=== PATIENT | male | born 1950 | race Caucasian/White ===

== ENCOUNTER 2019-08-17 08:00 | Day surgery (SDC) | payer MEDICARE, BC ==
[2019-08-15 15:08] VITALS: BMI 27.4
[~2019-08-17 08:00] MED LIST: LACTATED RINGERS 1,000 ML IV SCH; LIDOCAINE 1% 20 ML VIAL (10MG/ML) FOR IV START INTRADERMA PRN
[2019-08-17 08:35] VITALS: RESP 16; TEMP 98.1
[2019-08-17] MEDS ORDERED: PROPOFOL 10 MG/ML 20 ML VIAL IV ONE (09:10)
--- NOTE | 2019-08-17 09:28 | P.PCN ---
Date of Procedure: 08/17/19 Procedure(s) Performed: BRIEF HISTORY: Patient is a 68-year-old pleasant 8 male, scheduled for an elective colonoscopy as a part of screening for colorectal neoplasia. Last colonoscopy was 10 years ago. PROCEDURE PERFORMED: Colonoscopy. PREOPERATIVE DIAGNOSIS: Screening for colon cancer. IV sedation per Anesthesia. PROCEDURE: After informed consent was obtained, the patient, was brought into the endoscopy unit. IV sedation was administered by Anesthesia under continuous monitoring. Digital rectal examination was normal. Initially the Olympus CF-160 flexible video colonoscope was then inserted in the rectum, gradually advanced into the cecum without any difficulty. Careful examination was performed as the scope was gradually being withdrawn. Ileocecal valve and the appendiceal orifice were visualized and appeared normal. Prep was excellent. Mucosa of the cecum, ascending colon, transverse colon, descending colon, sigmoid colon, and rectum appeared normal. Scattered sigmoid diverticulosis seen. Retroflexion was performed in the rectum and no lesions were seen. The patient tolerated the procedure well. IMPRESSION: Normal-appearing colon from rectum to cecum with no evidence of colorectal neoplasia. Scattered sigmoidal diverticulosis. RECOMMENDATIONS: Findings of this examination were discussed with the patient as well as his family. He was advised to have a repeat screening colonoscopy in 10 years.
[2019-08-17 10:06] VITALS: BP 127/75; PULSE 69
== END 2019-08-17 10:17 | disposition home or self-care (01) ==
LOC: ORWHC2ENDO 08:00
PROVIDERS: ATTEND Internal Medicine Gastroenterology
DX: Z12.11 Encounter for screening for malignant neoplasm of colon (principal); K57.30 Diverticulosis of large intestine without perforation or abscess without bleeding; E78.5 Hyperlipidemia, unspecified; N40.0 Benign prostatic hyperplasia without lower urinary tract symptoms; Z79.899 Other long term (current) drug therapy; Z96.651 Presence of right artificial knee joint
CPT/HCPCS: J2704; G0121

== ENCOUNTER → 2021-08-19 | Outpatient (CLI) | payer MEDICARE, BC ==
--- NOTE | 2021-08-19 12:45 | P.STRESS ---
- Stress Test Note Stress Test Results/Findings: Exam Performed: stress echo exercise Exam Date: 08/19/21 Reason for Exam: chest pain Height: 5 ft 5 in Weight: 170 kg Protocol: Aaron Stage: III Duration of Exercise: 8:01 Resting Heart Rate: 79 Resting Blood Pressure: 148/84 Maximum Achieved Heart Rate: 140 Maximum Achieved Blood Pressure: 186/66 85% PMHR: 126 100% PMHR: 148 METS: 9.7 Technologist Comment: Stress Test Results/Findings: Patient underwent exercise stress echo with a Aaron protocol treadmill stress test. Patient exercised into Stage 3 for a total of 8 minutes and 1 second reaching a total of 9.7 METS. Patient's maximum heart rate was 140 which represented 95 % age-predicted maximum heart rate. There was no chest pain noted with exercise. Stress EKG portion: At baseline patient's EKG showed normal sinus rhythm, normal axis, no significant ST or T-wave abnormalities. At peak exercise, EKG showed nonspecific 0.[address] depressions in the inferior and lateral leads which is nondiagnostic, occasional PVC. Stress echo portion: 2-D echocardiogram was performed in the parasternal long, personal short, apical 2 and apical four-chamber views at rest, peak exercise and in recovery. At baseline, echocardiogram showed left ventricular ejection fraction 55% without wall motion abnormalities. With peak exercise, echocardiogram shows improvement in left ventricular ejection fraction, increase contractility, decrease in left ventricular dimension without wall motion abnormalities consistent with a normal response to exercise. Conclusions: 1. Nondiagnostic and nonspecific EKG response with 0.[address] depressions in the inferior and lateral leads. 2. Normal echo response to exercise without evidence of inducible ischemia. 2. Fair exercise capacity.
== END | disposition home or self-care (01) ==
LOC: RADNMMAIN 09:35
PROVIDERS: ATTEND Internal Medicine
DX: R07.9 Chest pain, unspecified (principal)
CPT/HCPCS: 93351

== ENCOUNTER → 2024-03-29 | Outpatient (CLI) | payer MEDICARE ==
[2024-03-29 16:01] VITALS: BP 162/84; PULSE 64; RESP 16; TEMP 97.9
--- NOTE | 2024-03-29 17:07 | P.SLEEP ---
History of Present Illness H&P Date: 03/29/24 This is a 73-year-old male patient who is coming in for increased fatigue and sleepiness. The patient has been evaluated for sleep apnea in the past and this evaluation was done more than 20 years ago. At that time, he was given a CPAP machine and used the machine briefly and he was unable to tolerate any endocrine with treatment. As such, over the past 20 years, the patient has not been utilizing any form of treatment. He is currently retired. 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 He is snores quite soft and no loud snoring according to the . Nevertheless, he has been noted to slow down his breathing and at times quit breathing in the middle of the night as reported by the when he wakes up with a choking and gas. No grinding of the teeth. No sleepwalking. No sleep talking. No symptoms of nocturia. The patient goes to bed around 10 PM, wakes up 6 AM in the morning. He takes a nap which last for approximately an hour at around 2:30 PM. He can easily fall asleep and he has no problems with sleep initiation. During the day, he feels fatigued and according to the he seems to be more tired. He sleeps on his stomach. The nose breather. No recent weight gain. No excessive utilization of alcohol or caffeinated beverages. No history of any motor vehicle accidents because of feeling drowsy or sleepy. Comorbidities are hyperlipidemia and BPH. No history of any cardiovascular disease. No atrial fibrillation. No frandy estion heart failure. No history of any stroke. Review of Systems Constitutional: Reports daytime sleepiness, Reports fatigue Eyes: denies as per HPI, denies blurred vision, denies bulging eye, denies decreased vision, denies diplopia, denies discharge, denies dry eye, denies irritation, denies itching, denies pain, denies photophobia, denies loss of peripheral vision, denies loss of vision, denies tunnel vision/blind spots Ears: deny: decreased hearing, ear discharge, earache, tinnitus Ears, nose, mouth and throat: Reports as per HPI Breasts: absent: as per HPI, gynecomastia Cardiovascular: Reports as per HPI Respiratory: Reports as per HPI, Reports sleep apnea Gastrointestinal: Reports as per HPI Genitourinary: Reports as per HPI Musculoskeletal: Reports as per HPI Musculoskeletal: absent: ankle pain, ankle stiffness, ankle swelling, as per HPI, elbow pain, elbow stiffness, elbow swelling, foot pain, foot stiffness, foot swelling, hand pain, hand stiffness, hand swelling, hip pain, hip stiffness, hip swelling, knee pain, knee stiffness, knee swelling, shoulder pain, shoulder stiffness, shoulder swelling, wrist pain, wrist stiffness, wrist swelling Integumentary: Reports as per HPI Neurological: Reports as per HPI Psychiatric: Reports as per HPI Endocrine: Reports as per HPI Hematologic/Lymphatic: Reports as per HPI Allergic/Immunologic: Reports as per HPI Past Medical History Past Medical History: Hyperlipidemia, Prostate Disorder, Sleep Apnea/CPAP/BIPAP History of Any Multi-Drug Resistant Organisms: None Reported Past Surgical History: Joint Replacement Additional Past Surgical History / Comment(s): RT TKA. COLONOSCOPY Past Anesthesia/Blood Transfusion Reactions: No Reported Reaction Past Psychological History: No Psychological Hx Reported Smoking Status: Never smoker Past Alcohol Use History: Occasional Past Drug Use History: None Reported - Past Family History Mother Family Medical History: No Reported History Medications and Allergies Home Medications Medication Instructions Recorded Confirmed Type Rosuvastatin [Crestor] 10 mg PO HS 08/15/19 03/29/24 History Tamsulosin HCl [Flomax] 0.4 mg PO HS 08/15/19 03/29/24 History tadalafiL 5 mg PO DAILY 03/29/24 03/29/24 History Allergies Allergy/AdvReac Type Severity Reaction Status Date / Time No Known Allergies Allergy Verified 08/15/19 15:02 Physical Exam Vitals: Vital Signs Temp Pulse Resp BP Pulse Ox 03/29/24 15:46 97.9 F 64 16 162/84 99 Intake and Output 03/29/24 03/29/24 03/29/24 06:59 14:59 22:59 Other: Weight 76.204 kg The patient appeared well nourished and normally developed. Vital signs as documented. Head exam is unremarkable. No scleral icterus or corneal arcus noted. Neck is without jugular venous distension, thyromegaly, or carotid bruits. The patient has significant crowding of posterior pharynx and the patient is a Mallampati class IV. Carotid upstrokes are brisk bilaterally. Lungs are clear to auscultation and percussion. Cardiac exam reveals the PMI to be normally sized and situated. Rhythm is regular. First and second heart sounds normal. No murmurs, rubs or gallops. Abdominal exam reveals normal bowel sounds, no masses, no organomegaly and no aortic enlargement. Extremities are nonedematous and both femoral and pedal pulses are normal. Examination of the skin revealed no evidence of significant rashes, suspicious appearing nevi or other concerning lesions. Neurologically, the patient is awake and alert and the patient does not have any focal neurological deficit. Cranial nerves are essentially intact. Assessment and Plan Plan: Obstructive sleep apnea, diagnosed many years back, failed CPAP therapy and the patient is presenting for reevaluation. No recent weight gain. Some limited worsening in symptoms of fatigue and sleepiness over the years. The patient has an [place] score of 7. The current body mass index is 28.2. The patient has a Mallampati class IV. No chronic cardiovascular complications. Hypersomnia. Hyperlipidemia BPH Plan Will proceed with a home sleep study. The patient has difficulties in falling asleep at the sleep center. He also prefers to sleep on his stomach. Based on all this, we will try to do a home sleep study to evaluate the presence and severity of sleep apnea and decide if treatment is worthwhile or of any significance for this patient. Maintain good sleep hygiene measures. Consolidate sleep at nighttime and try to avoid naps. Maintain regular sleep schedule. Will continue to follow. Sleep Note - Sleep Data ESS Total: 7 - Sleep Note Sleep Note: Temperature: 97.9 F Pulse Rate: 64 Respiratory Rate: 16 Blood Pressure: 162/84 SpO2: 99 Height: 5 ft 4.7 in Weight: 76.204 kg BMI: Neck Circumference: 15.5
== END ==
LOC: 3 N SLEEP 14:53
PROVIDERS: ATTEND Internal Medicine Critical Care Medicine
DX: G47.33 Obstructive sleep apnea (adult) (pediatric) (principal); G47.10 Hypersomnia, unspecified; R53.83 Other fatigue; E78.5 Hyperlipidemia, unspecified; N40.0 Benign prostatic hyperplasia without lower urinary tract symptoms
CPT/HCPCS: 99211

== ENCOUNTER → 2024-03-31 | Outpatient (CLI) | payer MEDICARE ==
--- NOTE | 2024-04-07 08:15 | P.PCN ---
Date of Procedure: 03/31/24 Operative Findings: Home sleep study testing Date of service is 03/31/2024 History This is a 73-year-old male patient diagnosed having obstructive sleep apnea many years back and the patient has failed CPAP therapy and the patient is presenting for evaluation. No recent weight gain. Some limited worsening of symptoms of fatigue and sleepiness over the years and the patient carries an [place] score of 7. Patient has hyperlipidemia and BPH. Pertinent physical findings The patient has a weight of 76 kg with a height of 5 feet and 4 inches. Body mass 28 Technical description The [employer] system was used to complete this home sleep study. There is a type III home sleep study. Total recording duration was 8 hours and 23 minutes. The study started at 10:16 PM and the study ended at 6:39 AM. There was a total of 8 hours and 12 minutes of flow monitoring and 8 hours and 30 minutes of oxygen saturation monitoring Results Respiratory analysis showed 1 obstructive apnea and 11 obstructive hypopneas. The resulting AHI was 1.5 Oxygenation analysis No major oxygen saturations were encountered and the patient was able to maintain a pulse ox above 90% throughout the sleep study Cardiac summary Average heart rate was 55 with a minimum heart rate of 47 and maximum heart rate of 95 Assessment Primary snoring without evidence of any sleep breathing disorder. AHI is 1.5 and there is no significant Oxygen saturations Hyperlipidemia BPH Plan Patient will be reassured. No evidence of any significant sleep breathing disorder. This is a negative study. Maintain good sleep hygiene measures. Optimized comorbidities. Maintain regular sleep schedule. Follow-up with the primary care.
== END ==
LOC: 3 N SLEEP 16:55
PROVIDERS: ATTEND Internal Medicine Critical Care Medicine
DX: G47.33 Obstructive sleep apnea (adult) (pediatric) (principal); E78.5 Hyperlipidemia, unspecified; N40.0 Benign prostatic hyperplasia without lower urinary tract symptoms